=== PATIENT | female | born 1965 | race Native Hawaiian/Other Pacific Islander ===

== ENCOUNTER 2018-10-29 17:30 | Emergency (ER) | payer OTHER ==
[~2018-10-29] VITALS: Ht 160 cm; Wt 39.9 kg
[2018-10-29 18:27] LABS: PLATELET COUNT 312 K/uL (152-353)
[2018-10-29 18:41] LABS: POTASSIUM 3.6 mmol/L (3.6-5.2)
[2018-10-29 19:33] VITALS: BP 150/82; TEMP 98.1
== END 2018-10-29 19:33 | disposition home or self-care (01) ==
LOC: ED 17:30
PROVIDERS: Emergency Medicine
DX: K52.9 Noninfective gastroenteritis and colitis, unspecified (principal)
CPT/HCPCS: 36415; 80053; 85027; 86318; 87040; 96365; 96374; 99284; J2405

== ENCOUNTER 2018-11-17 12:24 | Observation (INO) | payer OTHER ==
[2018-11-17] VITALS (8 sets, daily range): BP systolic 142–184; BP diastolic 78–99; TEMP 97.4–98.5; Ht 160 cm; Wt 40.5 kg
[~2018-11-17] VITALS: Ht 160 cm; Wt 40.5 kg
[2018-11-17 13:31] LABS: PLATELET COUNT 353 K/uL (152-353)
[2018-11-17 13:40] LABS: POTASSIUM 3.1 mmol/L (3.6-5.2)
[2018-11-18 04:00] VITALS: BP 143/83; TEMP 98.3
[2018-11-18 04:58] LABS: POTASSIUM 4.4 mmol/L (3.6-5.2)
[2018-11-18 08:00] VITALS: BP 129/81; TEMP 98.1
[2018-11-18 12:00] VITALS: BP 110/72; TEMP 98.1
[2018-11-18 16:00] VITALS: BP 161/74; TEMP 98
[2018-11-18 20:00] VITALS: BP 155/78; TEMP 98.3
[2018-11-19] VITALS: BP 141/61; TEMP 98.2
[2018-11-19 04:00] VITALS: BP 142/86; TEMP 98.4
[2018-11-19 08:06] VITALS: BP 140/74; TEMP 98.2
== END 2018-11-19 11:30 | disposition home or self-care (01) ==
LOC: ED 12:24 → MED/SURG 16:10
PROVIDERS: Internal Medicine; ADMIT Emergency Medicine
DX: K52.82 Eosinophilic colitis (principal); R11.2 Nausea with vomiting, unspecified; Z72.0 Tobacco use; I10 Essential (primary) hypertension; R63.4 Abnormal weight loss; E87.6 Hypokalemia; E83.42 Hypomagnesemia; E87.2 Acidosis
CPT/HCPCS: 36415; 80048; 80053; 81000; 82150; 83605; 83690; 83735; 85027; 96360; 96365; 96366; 96367; 96375; 99220; 99284; G0378; J2270; J2405; J2543; J2765; J3475; J3490